=== PATIENT | male | born 1955 | race Caucasian/White ===

== ENCOUNTER 2022-01-12 15:44 | Inpatient (IN) | payer SELFPAY ==
[~2022-01-12] VITALS: Ht 165.1 cm; Wt 79.8 kg
[2022-01-12] VITALS (10 sets, daily range): BP systolic 87–153; BP diastolic 51–130
[~2022-01-12 15:44] MED LIST: ETOMIDATE 2MG/ML 10ML VIAL IV ONE; VECURONIUM BROMIDE 10 MG/VIAL IV ONE
[2022-01-12] MEDS ORDERED: ACETAMINOPHEN 650MG SUPP PR STA (15:57)
[2022-01-12] MEDS ORDERED: SODIUM CHLORIDE 0.9% 1000ML BAG (SEPSIS BOLUS) IV ONE (16:00)
[2022-01-12] MEDS ORDERED: PIPERACILLIN/TAZ 3.375G PREMIX 50 ML IV ONE (16:00)
[2022-01-12] MEDS ORDERED: NOREPINEPHRINE 8 MG in DEXT 5% WATER 242 ML IV STA (16:21)
[2022-01-12 16:35] LABS: BASOPHILS % 0.2 % (0.0-2.0); EOSINOPHILS % 0.3 % (0.0-5.0); HEMATOCRIT. 47.9 % (42.0-52.0); LYMPHOCYTES % 30.4 % (20.0-50.0); MEAN CORPUSCULAR HEMOGLOBIN 33.3 pg (28.0-32.0); MEAN CORPUSCULAR VOLUME 99.4 fL (80.0-94.0); MEAN PLATELET VOLUME 11.3 fl (7.4-10.4); MONOCYTES % 6.9 % (2.0-8.0); NEUTROPHILS % 62.2 % (40.0-76.0); PLATELET 101 x1000/uL (130-400); RED BLOOD CELL COUNT 4.82 mill/uL (4.7-6.1)
[2022-01-12 16:41] LABS: CHLORIDE 102 mEq/L (98-107)
[2022-01-12 16:42] LABS: INR 1.6; PROTHROMBIN TIME 16.1 sec (9.6-11.0)
[2022-01-12 16:51] LABS: BETA HYDROXYBUTYRATE 0.4 mMol/L (0.0-0.3); CREATINE KINASE 71 IU/L (39-308); ETHANOL BLOOD < 10 mg/dL
[2022-01-12] MEDS ORDERED: FENTANYL 2500MCG/250ML PMX 250 ML IV NR (17:00)
[2022-01-12 17:13] LABS: BG BASE EXCESS 3.1 mmol/L (-2.0-2.0); BG CARBOXYHEMOGLOBIN 0.2 % (0.5-1.5); BG DEOXYHEMOGLOBIN 0.7 % (0.0-5.0); BG FRACTION INSPIRED OXYGEN 100; BG HCO3 ACT 24.3 mmol/L (22.0-26.0); BG METHEMOGLOBIN 0.6 % (0.0-1.5); BG OXYGEN SATURATION 99.3 % (92.0-98.5); BG OXYHEMOGLOBIN 98.5 % (94.0-97.0); BG PCO2 28.4 mmHg (35.0-45.0); BG PO2 237.1 mmHg (75.0-100.0); BG SAMPLE SITE RIGHT RADIAL; BG TOTAL HEMOGLOBIN 15.1 g/dL (12.0-18.0); BG VENT MODE VENT - AC
[2022-01-12 17:15] LABS: CLARITY URINE CLOUDY (CLEAR); COLOR URINE DARK YELLOW (YELLOW); KETONES URINE TRACE (NEGATIVE); LEUKOCYTE ESTERASE URINE 1+ (NEGATIVE); NITRITE URINE POSITIVE (NEGATIVE); OCCULT BLOOD URINE TRACE (NEGATIVE); PROTEIN URINE 2+ (NEGATIVE); SPECIFIC GRAVITY URINE 1.024 (1.005-1.030)
[2022-01-12] MEDS ORDERED: IPRATROPIUM/ALBUTEROL 0.5-3(2.5)MG/3ML NEB HHN PRN (17:15)
[2022-01-12] MEDS ORDERED: MIDAZOLAM HCL 100 MG in DEXT 5% WATER 80 ML IV ONE (17:15)
[2022-01-12] MEDS ORDERED: VECURONIUM BROMIDE 10 MG/VIAL IV ONE (17:15)
[2022-01-12] MEDS ORDERED: ETOMIDATE 2MG/ML 10ML VIAL IV ONE (17:15)
[2022-01-12] MEDS ORDERED: NOREPINEPHRINE 8MG/250ML PMX 250 ML IV NR (17:15)
[2022-01-12] MEDS ORDERED: MIDAZOLAM 100MG/100ML PMX 100 ML IV NR (17:30)
[2022-01-12 17:34] LABS: *AMPHETAMINES SCREEN URINE NEGATIVE (NEGATIVE); *BARBITURATES SCREEN URINE NEGATIVE (NEGATIVE); *BENZODIAZEPINES SCREEN URINE NEGATIVE (NEGATIVE); *COCAINE SCREEN URINE NEGATIVE (NEGATIVE); CANNABINOID URINE SCREEN NEGATIVE (NEGATIVE); METHADONE URINE SCREEN NEGATIVE (NEGATIVE); OPIATES URINE SCREEN NEGATIVE (NEGATIVE); PHENCYCLIDINE URINE SCREEN NEGATIVE (NEGATIVE)
[2022-01-12] MEDS: PROPOFOL 10MG/ML 100ML 100 ML IV PRN ×2 (17:49→21:33)
[2022-01-12] MEDS ORDERED: ENOXAPARIN 40MG/0.4ML SYR SUBCUT SCH ×2 (18:00→18:15)
[2022-01-12] MEDS ORDERED: NOREPINEPHRINE 8 MG in DEXT 5% WATER 242 ML IV PRN (18:15)
[2022-01-12] MEDS ORDERED: CLONIDINE 0.1MG TABLET PO PRN (18:15)
[2022-01-12] MEDS ORDERED: MAGNESIUM/ALUMINUM HYDROXIDE/SIMETHICONE 30ML UDC PO PRN (18:15)
[2022-01-12] MEDS ORDERED: NA PHOS,M-B/NA PHOS,DI-BA ENEMA 118ML PR PRN (18:15)
[2022-01-12] MEDS ORDERED: ACETAMINOPHEN 325MG TABLET PO PRN (18:15)
[2022-01-12] MEDS ORDERED: DOCUSATE SODIUM 100MG CAPSULE PO PRN (18:15)
[2022-01-12] MEDS ORDERED: VANCOMYCIN 1500MG in DEXTROSE 5% WATER 250ML IV NR (18:30)
[2022-01-12] MEDS ORDERED: ACETAMINOPHEN 650MG SUPP PR SCH (18:30)
[2022-01-12] MEDS: DEXT 5%/0.45% NACL 1000ML 1,000 ML IV SCH (19:10)
[2022-01-12] MEDS: IPRATROPIUM/ALBUTEROL 0.5-3(2.5)MG/3ML NEB HHN SCH (20:56)
[2022-01-12] MEDS: FAMOTIDINE 20MG TABLET PO SCH (21:00)
[2022-01-12] MEDS ORDERED: PIPERACILLIN/TAZOBACTAM 3.375 G in DEXTROSE 5% WATER 50 ML IV SCH (22:00)
[2022-01-12] MEDS ORDERED: DEXTROSE 50% WATER 50ML SYRINGE IV PRN (23:00)
[2022-01-12] MEDS: PIPERACILLIN/TAZOBACTAM 3.375 G in DEXTROSE 5% WATER 50 ML IV SCH (23:02)
[2022-01-13] VITALS (87 sets, daily range): BP systolic 69–157; BP diastolic 36–110
[2022-01-13] MEDS: IPRATROPIUM/ALBUTEROL 0.5-3(2.5)MG/3ML NEB HHN SCH ×4 (00:42→18:00)
[2022-01-13 01:23] LABS: CREATINE KINASE 80 IU/L (39-308); CREATINE KINASE MB FRACTION < 1.0 ng/mL (0.5-3.6)
[2022-01-13 01:27] LABS: T4 FREE 1.41 ng/dL (0.76-1.46)
[2022-01-13] MEDS: DEXT 5%/0.45% NACL 1000ML 1,000 ML IV SCH ×2 (02:22→12:18)
[2022-01-13] MEDS: PROPOFOL 10MG/ML 100ML 100 ML IV PRN (02:51)
[2022-01-13 05:51] LABS: BASOPHILS % 0.2 % (0.0-2.0); EOSINOPHILS % 0.2 % (0.0-5.0); HEMOGLOBIN. 15.8 g/dL (14.0-18.0); LYMPHOCYTES % 26.8 % (20.0-50.0); MEAN CORPUSCULAR HEMOGLOBIN 33.8 pg (28.0-32.0); MEAN CORPUSCULAR VOLUME 100.6 fL (80.0-94.0); MEAN PLATELET VOLUME 10.7 fl (7.4-10.4); MONOCYTES % 4.4 % (2.0-8.0); NEUTROPHILS % 68.4 % (40.0-76.0); PLATELET 75 x1000/uL (130-400); RED BLOOD CELL COUNT 4.68 mill/uL (4.7-6.1); RED CELL DISTRIBUTION WIDTH 15.9 % (11.6-14.6)
[2022-01-13] MEDS: PIPERACILLIN/TAZOBACTAM 3.375 G in DEXTROSE 5% WATER 50 ML IV SCH (05:56)
[2022-01-13 06:09] LABS: CHLORIDE 104 mEq/L (98-107)
[2022-01-13 06:24] LABS: PHOSPHORUS 2.7 mg/dL (2.5-4.9)
[2022-01-13] MEDS: BLOOD SUGAR DIAGNOSTIC STRIP TEST SCH ×4 (06:30→21:18)
[2022-01-13] MEDS: INSULIN LISPRO 100 UNITS/ML SUBCUT SCH ×4 (06:37→21:29)
[2022-01-13 06:51] LABS: VITAMIN B12 SERUM 796 pg/mL (211-911)
[2022-01-13] MEDS ORDERED: VANCOMYCIN 750 MG in DEXT 5% WATER 250 ML IV SCH (07:00)
[2022-01-13 07:01] LABS: FOLIC ACID (FOLATE) SERUM > 20.00 ng/mL (>5.38)
[2022-01-13] MEDS: FAMOTIDINE 20MG TABLET PO SCH ×2 (08:27→21:26)
[2022-01-13 08:51] LABS: BG BASE EXCESS 1.4 mmol/L (-2.0-2.0); BG CARBOXYHEMOGLOBIN 0.2 % (0.5-1.5); BG DEOXYHEMOGLOBIN 1.7 % (0.0-5.0); BG FRACTION INSPIRED OXYGEN 60; BG HCO3 ACT 23.1 mmol/L (22.0-26.0); BG METHEMOGLOBIN 0.2 % (0.0-1.5); BG OXYGEN SATURATION 98.3 % (92.0-98.5); BG OXYHEMOGLOBIN 97.9 % (94.0-97.0); BG PCO2 29.3 mmHg (35.0-45.0); BG PH 7.515 (7.350-7.450); BG PO2 111.3 mmHg (75.0-100.0); BG SAMPLE SITE RIGHT BRACHIAL; BG TOTAL HEMOGLOBIN 15.6 g/dL (12.0-18.0); BG VENT MODE VENT - AC
[2022-01-13] MEDS ORDERED: VANCOMYCIN 750MG PREMIX 150 ML IV SCH (09:00)
[2022-01-13] MEDS ORDERED: PANTOPRAZOLE SODIUM 40 MG/VIAL IV SCH (09:00)
[2022-01-13] MEDS ORDERED: PHENYLEPHRINE 100 MG in DEXT 5% WATER 240 ML IV PRN ×2 (09:45→12:00)
[2022-01-13] MEDS ORDERED: POTASSIUM CHLORIDE 20MEQ/PACKET PO NR ×2 (10:00→16:00)
[2022-01-13] MEDS ORDERED: FUROSEMIDE 40MG/4ML VIAL IVP NR (10:15)
[2022-01-13] MEDS ORDERED: ENOXAPARIN 80MG/0.8ML SYR SUBCUT NR (10:30)
[2022-01-13] MEDS: PHENYLEPHRINE 100 MG in DEXT 5% WATER 240 ML IV PRN (12:17)
[2022-01-13] MEDS: MEROPENEM 1,000 MG in SODIUM CHLORIDE 0.9% 100 ML IV SCH ×2 (13:53→21:28)
[2022-01-13] MEDS: VANCOMYCIN 1GM PMX (XELLIA) 200 ML IV SCH (13:53)
[2022-01-14] VITALS (90 sets, daily range): BP systolic 51–145; BP diastolic 22–89
[2022-01-14] MEDS: DEXT 5%/0.45% NACL 1000ML 1,000 ML IV SCH ×4 (03:14→20:54)
[2022-01-14] MEDS: ONDANSETRON HCL 4MG/2ML INJ IV PRN (05:51)
[2022-01-14] MEDS: VANCOMYCIN 1GM PMX (XELLIA) 200 ML IV SCH (06:25)
[2022-01-14] MEDS: MEROPENEM 1,000 MG in SODIUM CHLORIDE 0.9% 100 ML IV SCH (06:25)
[2022-01-14] MEDS: BLOOD SUGAR DIAGNOSTIC STRIP TEST SCH ×4 (07:04→20:54)
[2022-01-14] MEDS: INSULIN LISPRO 100 UNITS/ML SUBCUT SCH ×4 (07:04→20:55)
[2022-01-14 07:27] LABS: BG BASE EXCESS -3.6 mmol/L (-2.0-2.0); BG CARBOXYHEMOGLOBIN 0.3 % (0.5-1.5); BG DEOXYHEMOGLOBIN 1.4 % (0.0-5.0); BG HCO3 ACT 18.6 mmol/L (22.0-26.0); BG METHEMOGLOBIN 0.3 % (0.0-1.5); BG OXYGEN SATURATION 98.6 % (92.0-98.5); BG PCO2 27.6 mmHg (35.0-45.0); BG PH 7.446 (7.350-7.450); BG PO2 129.8 mmHg (75.0-100.0); BG SAMPLE SITE RIGHT BRACHIAL; BG TOTAL HEMOGLOBIN 17.1 g/dL (12.0-18.0); BG VENT MODE VENT - SIMV
[2022-01-14] MEDS: IPRATROPIUM/ALBUTEROL 0.5-3(2.5)MG/3ML NEB HHN SCH ×4 (08:25→18:00)
[2022-01-14] MEDS ORDERED: FUROSEMIDE 40MG/4ML VIAL IVP NR (09:00)
[2022-01-14] MEDS ORDERED: POTASSIUM CHLORIDE 20MEQ/PACKET PO NR ×2 (09:00→14:00)
[2022-01-14 09:12] LABS: BASOPHILS % 0.3 % (0.0-2.0); EOSINOPHILS % 0.1 % (0.0-5.0); HEMATOCRIT. 50.1 % (42.0-52.0); HEMOGLOBIN. 16.5 g/dL (14.0-18.0); LYMPHOCYTES % 20.8 % (20.0-50.0); MEAN CORPUSCULAR VOLUME 100.2 fL (80.0-94.0); MEAN PLATELET VOLUME 11.4 fl (7.4-10.4); MONOCYTES % 5.7 % (2.0-8.0); NEUTROPHILS % 73.1 % (40.0-76.0); PLATELET 74 x1000/uL (130-400); RED CELL DISTRIBUTION WIDTH 16.5 % (11.6-14.6)
[2022-01-14] MEDS: FAMOTIDINE 20MG TABLET PO SCH ×2 (10:02→20:54)
[2022-01-14] MEDS: PHENYLEPHRINE 100 MG in DEXT 5% WATER 240 ML IV PRN (10:32)
[2022-01-14 11:19] LABS: BG BASE EXCESS -5.1 mmol/L (-2.0-2.0); BG CARBOXYHEMOGLOBIN 0.3 % (0.5-1.5); BG DEOXYHEMOGLOBIN 1.8 % (0.0-5.0); BG HCO3 ACT 16.6 mmol/L (22.0-26.0); BG METHEMOGLOBIN 0.3 % (0.0-1.5); BG OXYGEN SATURATION 98.2 % (92.0-98.5); BG OXYHEMOGLOBIN 97.6 % (94.0-97.0); BG PCO2 24.9 mmHg (35.0-45.0); BG PH 7.442 (7.350-7.450); BG PO2 112.3 mmHg (75.0-100.0); BG SAMPLE SITE RIGHT BRACHIAL; BG TOTAL HEMOGLOBIN 17.9 g/dL (12.0-18.0); BG VENT MODE VENT - CPAP
[2022-01-14] MEDS ORDERED: ENOXAPARIN 80MG/0.8ML SYR SUBCUT SCH (15:00)
[2022-01-14] MEDS: MEROPENEM 1000MG in NORMAL SALINE 100ML IV SCH (18:00)
[2022-01-15] VITALS (89 sets, daily range): BP systolic 54–149; BP diastolic 26–114
[2022-01-15] MEDS: ONDANSETRON HCL 4MG/2ML INJ IV PRN (03:31)
[2022-01-15 05:24] LABS: BASOPHILS % 0.3 % (0.0-2.0); EOSINOPHILS % 0.4 % (0.0-5.0); HEMATOCRIT. 46.2 % (42.0-52.0); HEMOGLOBIN. 15.2 g/dL (14.0-18.0); LYMPHOCYTES % 27.2 % (20.0-50.0); MEAN CORPUSCULAR HEMOGLOBIN 33.2 pg (28.0-32.0); MEAN CORPUSCULAR VOLUME 101.3 fL (80.0-94.0); MEAN PLATELET VOLUME 11.6 fl (7.4-10.4); NEUTROPHILS % 66.1 % (40.0-76.0); PLATELET 56 x1000/uL (130-400); RED BLOOD CELL COUNT 4.56 mill/uL (4.7-6.1); RED CELL DISTRIBUTION WIDTH 16.2 % (11.6-14.6)
[2022-01-15 05:48] LABS: PHOSPHORUS 3.3 mg/dL (2.5-4.9)
[2022-01-15] MEDS: MEROPENEM 1000MG in NORMAL SALINE 100ML IV SCH ×2 (05:57→18:49)
[2022-01-15] MEDS: DEXT 5%/0.45% NACL 1000ML 1,000 ML IV SCH ×2 (05:58→13:00)
[2022-01-15] MEDS: BLOOD SUGAR DIAGNOSTIC STRIP TEST SCH ×4 (05:58→21:41)
[2022-01-15] MEDS: INSULIN LISPRO 100 UNITS/ML SUBCUT SCH ×4 (06:00→21:41)
[2022-01-15] MEDS ORDERED: DILTIAZEM HCL 5MG/ML 5ML VIAL IV NR (07:45)
[2022-01-15] MEDS: FAMOTIDINE 20MG TABLET PO SCH ×2 (08:16→21:41)
[2022-01-15] MEDS ORDERED: LIDOCAINE HCL/PF 1% 10 MG/ML 5ML VIAL ONE (10:38)
[2022-01-15 12:31] LABS: BG CARBOXYHEMOGLOBIN 0.3 % (0.5-1.5); BG DEOXYHEMOGLOBIN 1.7 % (0.0-5.0); BG FRACTION INSPIRED OXYGEN 40; BG HCO3 ACT 17.4 mmol/L (22.0-26.0); BG METHEMOGLOBIN 0.1 % (0.0-1.5); BG OXYGEN SATURATION 98.3 % (92.0-98.5); BG OXYHEMOGLOBIN 97.9 % (94.0-97.0); BG PH 7.427 (7.350-7.450); BG PO2 116.9 mmHg (75.0-100.0); BG SAMPLE SITE RIGHT RADIAL; BG TOTAL HEMOGLOBIN 16.5 g/dL (12.0-18.0); BG VENT MODE VENT - SIMV
[2022-01-15 15:03] LABS: BG BASE EXCESS -4.7 mmol/L (-2.0-2.0); BG CARBOXYHEMOGLOBIN 0.4 % (0.5-1.5); BG DEOXYHEMOGLOBIN 2.6 % (0.0-5.0); BG FRACTION INSPIRED OXYGEN 40; BG METHEMOGLOBIN 0.3 % (0.0-1.5); BG OXYGEN SATURATION 97.4 % (92.0-98.5); BG OXYHEMOGLOBIN 96.7 % (94.0-97.0); BG PH 7.426 (7.350-7.450); BG PO2 93.9 mmHg (75.0-100.0); BG SAMPLE SITE RIGHT RADIAL; BG TOTAL HEMOGLOBIN 15.9 g/dL (12.0-18.0); BG VENT MODE VENT - CPAP
[2022-01-15] MEDS: IPRATROPIUM/ALBUTEROL 0.5-3(2.5)MG/3ML NEB HHN SCH ×2 (19:49)
[2022-01-15] MEDS: DILTIAZEM HCL 5MG/ML 5ML VIAL IV PRN (20:50)
[2022-01-15] MEDS ORDERED: VANCOMYCIN 750 MG in DEXT 5% WATER 250 ML IV NR (21:00)
[2022-01-16] VITALS (71 sets, daily range): BP systolic 98–143; BP diastolic 30–108
[2022-01-16] MEDS: DEXT 5%/0.45% NACL 1000ML 1,000 ML IV SCH (00:07)
[2022-01-16] MEDS: IPRATROPIUM/ALBUTEROL 0.5-3(2.5)MG/3ML NEB HHN SCH ×4 (01:51→20:30)
[2022-01-16 05:01] LABS: BASOPHILS % 0.3 % (0.0-2.0); EOSINOPHILS % 0.5 % (0.0-5.0); HEMATOCRIT. 49.9 % (42.0-52.0); HEMOGLOBIN. 16.1 g/dL (14.0-18.0); LYMPHOCYTES % 22.5 % (20.0-50.0); MEAN CORPUSCULAR HEMOGLOBIN 33.4 pg (28.0-32.0); MEAN CORPUSCULAR VOLUME 103.6 fL (80.0-94.0); MEAN PLATELET VOLUME 12.2 fl (7.4-10.4); MONOCYTES % 8.9 % (2.0-8.0); NEUTROPHILS % 67.8 % (40.0-76.0); PLATELET 61 x1000/uL (130-400); RED BLOOD CELL COUNT 4.82 mill/uL (4.7-6.1); RED CELL DISTRIBUTION WIDTH 17.3 % (11.6-14.6)
[2022-01-16 05:23] LABS: PHOSPHORUS 2.9 mg/dL (2.5-4.9)
[2022-01-16] MEDS: MEROPENEM 1000MG in NORMAL SALINE 100ML IV SCH ×2 (06:03→17:15)
[2022-01-16] MEDS: DILTIAZEM HCL 5MG/ML 5ML VIAL IV PRN (06:03)
[2022-01-16] MEDS: BLOOD SUGAR DIAGNOSTIC STRIP TEST SCH ×4 (06:57→23:49)
[2022-01-16] MEDS: INSULIN LISPRO 100 UNITS/ML SUBCUT SCH ×3 (07:00→17:16)
[2022-01-16] MEDS: FAMOTIDINE 20MG TABLET PO SCH ×2 (08:33→09:00)
[2022-01-16 11:01] LABS: BG BASE EXCESS -4.4 mmol/L (-2.0-2.0); BG CARBOXYHEMOGLOBIN 0.9 % (0.5-1.5); BG DEOXYHEMOGLOBIN 0.9 % (0.0-5.0); BG FRACTION INSPIRED OXYGEN 40; BG HCO3 ACT 17.4 mmol/L (22.0-26.0); BG METHEMOGLOBIN 0.3 % (0.0-1.5); BG OXYGEN SATURATION 99.1 % (92.0-98.5); BG OXYHEMOGLOBIN 97.9 % (94.0-97.0); BG PCO2 25.2 mmHg (35.0-45.0); BG PH 7.456 (7.350-7.450); BG PO2 126.9 mmHg (75.0-100.0); BG SAMPLE SITE RIGHT RADIAL; BG TOTAL HEMOGLOBIN 16.1 g/dL (12.0-18.0); BG VENT MODE VENT - SIMV
[2022-01-17] VITALS (44 sets, daily range): BP systolic 106–243; BP diastolic 47–117
[2022-01-17] MEDS: DILTIAZEM HCL 5MG/ML 5ML VIAL IV PRN ×2 (00:04→13:21)
[2022-01-17] MEDS: INSULIN LISPRO 100 UNITS/ML SUBCUT SCH ×4 (00:05→18:00)
[2022-01-17] MEDS: IPRATROPIUM/ALBUTEROL 0.5-3(2.5)MG/3ML NEB HHN SCH ×4 (02:06→20:39)
[2022-01-17 05:30] LABS: HEMATOCRIT. 28.7 % (42.0-52.0); HEMOGLOBIN. 9.6 g/dL (14.0-18.0); MEAN CORPUSCULAR HEMOGLOBIN 34.2 pg (28.0-32.0); MEAN CORPUSCULAR VOLUME 102.6 fL (80.0-94.0); MEAN PLATELET VOLUME 12.9 fl (7.4-10.4); RED BLOOD CELL COUNT 2.79 mill/uL (4.7-6.1); RED CELL DISTRIBUTION WIDTH 16.5 % (11.6-14.6)
[2022-01-17 05:54] LABS: PHOSPHORUS 2.8 mg/dL (2.5-4.9)
[2022-01-17] MEDS ORDERED: VANCOMYCIN 750 MG in DEXT 5% WATER 250 ML IV PRN (06:00)
[2022-01-17] MEDS: BLOOD SUGAR DIAGNOSTIC STRIP TEST SCH ×3 (06:02→18:42)
[2022-01-17] MEDS: MEROPENEM 1000MG in NORMAL SALINE 100ML IV SCH ×2 (06:15→18:47)
[2022-01-17 06:36] LABS: PLATELET 38 x1000/uL (130-400)
[2022-01-17 08:14] LABS: PLATELET ESTIMATE MARKEDLY DECREASED
[2022-01-17] MEDS: FAMOTIDINE 20MG TABLET PO SCH (08:14)
[2022-01-17 08:33] LABS: BG BASE EXCESS -3.8 mmol/L (-2.0-2.0); BG DEOXYHEMOGLOBIN 3.5 % (0.0-5.0); BG FRACTION INSPIRED OXYGEN 30; BG HCO3 ACT 18.2 mmol/L (22.0-26.0); BG METHEMOGLOBIN 0.3 % (0.0-1.5); BG OXYGEN SATURATION 96.5 % (92.0-98.5); BG OXYHEMOGLOBIN 95.2 % (94.0-97.0); BG PCO2 26.3 mmHg (35.0-45.0); BG PH 7.458 (7.350-7.450); BG PO2 81.4 mmHg (75.0-100.0); BG SAMPLE SITE RIGHT RADIAL; BG TOTAL HEMOGLOBIN 15.4 g/dL (12.0-18.0); BG VENT MODE VENT - SIMV
[2022-01-17] MEDS ORDERED: FUROSEMIDE 40MG/4ML VIAL IVP SCH (09:00)
[2022-01-17] MEDS: DOBUTAMINE 500MG PREMIX 250 ML IV SCH ×2 (11:12→21:45)
[2022-01-17] MEDS ORDERED: NICARDIPINE 100 MG in SODIUM CHLORIDE 0.9% 60 ML IV PRN (14:00)
[2022-01-17] MEDS: CARVEDILOL 6.25 MG TABLET PO SCH ×2 (18:00→23:10)
[2022-01-17 23:18] LABS: BASOPHILS % 0.4 % (0.0-2.0); EOSINOPHILS % 0.3 % (0.0-5.0); HEMATOCRIT. 39.6 % (42.0-52.0); HEMOGLOBIN. 13.2 g/dL (14.0-18.0); LYMPHOCYTES % 15.6 % (20.0-50.0); MEAN CORPUSCULAR HEMOGLOBIN 33.1 pg (28.0-32.0); MEAN CORPUSCULAR VOLUME 99.4 fL (80.0-94.0); MEAN PLATELET VOLUME 11.5 fl (7.4-10.4); MONOCYTES % 11.2 % (2.0-8.0); NEUTROPHILS % 72.5 % (40.0-76.0); RED BLOOD CELL COUNT 3.99 mill/uL (4.7-6.1); RED CELL DISTRIBUTION WIDTH 15.9 % (11.6-14.6)
[2022-01-17 23:32] LABS: PLATELET 35 x1000/uL (130-400)
[2022-01-18] VITALS (55 sets, daily range): BP systolic 102–172; BP diastolic 33–119
[2022-01-18] MEDS: BLOOD SUGAR DIAGNOSTIC STRIP TEST SCH ×4 (00:44→18:37)
[2022-01-18] MEDS: INSULIN LISPRO 100 UNITS/ML SUBCUT SCH ×4 (00:53→18:00)
[2022-01-18] MEDS: IPRATROPIUM/ALBUTEROL 0.5-3(2.5)MG/3ML NEB HHN SCH ×4 (01:34→22:01)
[2022-01-18 05:47] LABS: BASOPHILS % 0.2 % (0.0-2.0); EOSINOPHILS % 0.4 % (0.0-5.0); HEMATOCRIT. 39.3 % (42.0-52.0); HEMOGLOBIN. 13.1 g/dL (14.0-18.0); LYMPHOCYTES % 16.8 % (20.0-50.0); MEAN CORPUSCULAR HEMOGLOBIN 32.9 pg (28.0-32.0); MEAN CORPUSCULAR VOLUME 98.7 fL (80.0-94.0); MEAN PLATELET VOLUME 10.8 fl (7.4-10.4); MONOCYTES % 10.5 % (2.0-8.0); NEUTROPHILS % 72.1 % (40.0-76.0); RED BLOOD CELL COUNT 3.98 mill/uL (4.7-6.1); RED CELL DISTRIBUTION WIDTH 16.4 % (11.6-14.6)
[2022-01-18 05:58] LABS: CHLORIDE 105 mEq/L (98-107)
[2022-01-18 06:10] LABS: PHOSPHORUS 2.2 mg/dL (2.5-4.9)
[2022-01-18] MEDS: MEROPENEM 1000MG in NORMAL SALINE 100ML IV SCH ×2 (06:36→18:28)
[2022-01-18 06:48] LABS: PLATELET 32 x1000/uL (130-400)
[2022-01-18] MEDS: CARVEDILOL 6.25 MG TABLET PO SCH (08:19)
[2022-01-18] MEDS: FAMOTIDINE 20MG TABLET PO SCH (08:19)
[2022-01-18] MEDS: DOBUTAMINE 500MG PREMIX 250 ML IV SCH ×3 (09:00→14:14)
[2022-01-18] MEDS ORDERED: FUROSEMIDE 40MG/4ML VIAL IVP SCH (10:00)
[2022-01-18] MEDS: VANCOMYCIN 750 MG in DEXT 5% WATER 250 ML IV SCH (14:39)
[2022-01-18] MEDS ORDERED: POTASSIUM PHOS,M-BASIC-D-BASIC 15 MMOL in DEXT 5% WATER 245 ML IV SCH (15:00)
[2022-01-18] MEDS ORDERED: MAGNESIUM 2 G PREMIX 50 ML IV SCH (15:00)
[2022-01-18 16:47] LABS: BG CARBOXYHEMOGLOBIN 0.4 % (0.5-1.5); BG DEOXYHEMOGLOBIN 2.3 % (0.0-5.0); BG HCO3 ACT 23.2 mmol/L (22.0-26.0); BG METHEMOGLOBIN 0.1 % (0.0-1.5); BG OXYGEN SATURATION 97.7 % (92.0-98.5); BG OXYHEMOGLOBIN 97.2 % (94.0-97.0); BG PCO2 30.3 mmHg (35.0-45.0); BG PH 7.502 (7.350-7.450); BG PO2 98.6 mmHg (75.0-100.0); BG SAMPLE SITE RIGHT RADIAL; BG TOTAL HEMOGLOBIN 13.7 g/dL (12.0-18.0); BG VENT MODE VENT - CPAP
[2022-01-18] MEDS: CARVEDILOL 12.5MG TABLET PO SCH (20:48)
[2022-01-19] VITALS (54 sets, daily range): BP systolic 106–151; BP diastolic 33–107
[2022-01-19] MEDS: BLOOD SUGAR DIAGNOSTIC STRIP TEST SCH ×5 (00:25→23:26)
[2022-01-19] MEDS: IPRATROPIUM/ALBUTEROL 0.5-3(2.5)MG/3ML NEB HHN SCH ×4 (01:52→21:00)
[2022-01-19] MEDS: DOBUTAMINE 500MG PREMIX 250 ML IV SCH (01:53)
[2022-01-19] MEDS: DILTIAZEM HCL 5MG/ML 5ML VIAL IV PRN ×2 (03:10→23:52)
[2022-01-19 05:53] LABS: BASOPHILS % 0.1 % (0.0-2.0); EOSINOPHILS % 1.1 % (0.0-5.0); HEMATOCRIT. 39.2 % (42.0-52.0); LYMPHOCYTES % 20.4 % (20.0-50.0); MEAN CORPUSCULAR HEMOGLOBIN 33.1 pg (28.0-32.0); MEAN CORPUSCULAR VOLUME 99.7 fL (80.0-94.0); MEAN PLATELET VOLUME 12.4 fl (7.4-10.4); MONOCYTES % 11.2 % (2.0-8.0); NEUTROPHILS % 67.2 % (40.0-76.0); RED BLOOD CELL COUNT 3.93 mill/uL (4.7-6.1); RED CELL DISTRIBUTION WIDTH 16.1 % (11.6-14.6)
[2022-01-19] MEDS: INSULIN LISPRO 100 UNITS/ML SUBCUT SCH ×5 (06:00→23:26)
[2022-01-19 06:07] LABS: CHLORIDE 103 mEq/L (98-107)
[2022-01-19 06:26] LABS: PLATELET 33 x1000/uL (130-400)
[2022-01-19] MEDS ORDERED: FUROSEMIDE 40MG/4ML VIAL IVP NR (09:45)
[2022-01-19] MEDS: FAMOTIDINE 20MG TABLET PO SCH (09:47)
[2022-01-19] MEDS: CARVEDILOL 12.5MG TABLET PO SCH ×2 (09:47→20:59)
[2022-01-19] MEDS: VANCOMYCIN 750 MG in DEXT 5% WATER 250 ML IV SCH (14:57)
[2022-01-19] MEDS: ONDANSETRON HCL 4MG/2ML INJ IV PRN (21:00)
[2022-01-20] VITALS (13 sets, daily range): BP systolic 107–130; BP diastolic 69–90
[2022-01-20] MEDS: IPRATROPIUM/ALBUTEROL 0.5-3(2.5)MG/3ML NEB HHN SCH ×4 (02:52→20:03)
[2022-01-20] MEDS: BLOOD SUGAR DIAGNOSTIC STRIP TEST SCH ×4 (05:04→23:03)
[2022-01-20] MEDS: INSULIN LISPRO 100 UNITS/ML SUBCUT SCH ×4 (05:12→23:04)
[2022-01-20 06:55] LABS: BASOPHILS % 0.2 % (0.0-2.0); EOSINOPHILS % 0.7 % (0.0-5.0); HEMATOCRIT. 48.9 % (42.0-52.0); HEMOGLOBIN. 15.6 g/dL (14.0-18.0); LYMPHOCYTES % 23.4 % (20.0-50.0); MEAN CORPUSCULAR HEMOGLOBIN 33.4 pg (28.0-32.0); MEAN CORPUSCULAR VOLUME 104.7 fL (80.0-94.0); MONOCYTES % 11.4 % (2.0-8.0); NEUTROPHILS % 64.3 % (40.0-76.0); RED BLOOD CELL COUNT 4.67 mill/uL (4.7-6.1); RED CELL DISTRIBUTION WIDTH 18.1 % (11.6-14.6)
[2022-01-20 07:08] LABS: PLATELET 40 x1000/uL (130-400)
[2022-01-20 07:20] LABS: CHLORIDE 101 mEq/L (98-107)
[2022-01-20 07:34] LABS: PHOSPHORUS 3.4 mg/dL (2.5-4.9)
[2022-01-20] MEDS: FUROSEMIDE 40MG/4ML VIAL IVP SCH (09:15)
[2022-01-20] MEDS: FAMOTIDINE 20MG TABLET PO SCH (09:15)
[2022-01-20] MEDS: CARVEDILOL 12.5MG TABLET PO SCH ×2 (09:15→20:38)
[2022-01-20] MEDS: MICONAZOLE NITRATE 2% OINT 71GM TOP SCH ×2 (09:16→20:39)
[2022-01-20] MEDS ORDERED: CARVEDILOL 12.5MG TABLET PO NR (11:15)
[2022-01-20] MEDS: VANCOMYCIN 750 MG in DEXT 5% WATER 250 ML IV SCH (14:15)
[2022-01-21] VITALS (11 sets, daily range): BP systolic 88–148; BP diastolic 61–78
[2022-01-21] MEDS: IPRATROPIUM/ALBUTEROL 0.5-3(2.5)MG/3ML NEB HHN SCH ×4 (02:00→20:09)
[2022-01-21] MEDS: INSULIN LISPRO 100 UNITS/ML SUBCUT SCH ×3 (05:15→17:37)
[2022-01-21] MEDS: BLOOD SUGAR DIAGNOSTIC STRIP TEST SCH ×3 (05:15→17:03)
[2022-01-21 07:05] LABS: CHLORIDE 103 mEq/L (98-107)
[2022-01-21 07:23] LABS: PHOSPHORUS 3.6 mg/dL (2.5-4.9)
[2022-01-21] MEDS: FUROSEMIDE 40MG/4ML VIAL IVP SCH (09:11)
[2022-01-21] MEDS: CARVEDILOL 12.5MG TABLET PO SCH ×2 (09:13→21:00)
[2022-01-21] MEDS: FAMOTIDINE 20MG TABLET PO SCH (09:13)
[2022-01-21] MEDS: MICONAZOLE NITRATE 2% OINT 71GM TOP SCH ×2 (09:18→21:00)
[2022-01-21] MEDS: GUAIFENESIN 200MG/10ML SUGAR FREE UDC PO PRN (09:44)
[2022-01-21 10:01] LABS: BASOPHILS % 0.3 % (0.0-2.0); EOSINOPHILS % 1.1 % (0.0-5.0); HEMOGLOBIN. 14.6 g/dL (14.0-18.0); LYMPHOCYTES % 20.4 % (20.0-50.0); MEAN CORPUSCULAR HEMOGLOBIN 33.5 pg (28.0-32.0); MEAN CORPUSCULAR VOLUME 101.1 fL (80.0-94.0); MEAN PLATELET VOLUME 12.4 fl (7.4-10.4); MONOCYTES % 10.1 % (2.0-8.0); NEUTROPHILS % 68.1 % (40.0-76.0); RED BLOOD CELL COUNT 4.35 mill/uL (4.7-6.1)
[2022-01-21 10:23] LABS: PLATELET 46 x1000/uL (130-400)
[2022-01-21 13:18] LABS: PLATELET ESTIMATE MARKEDLY DECREASED
[2022-01-21] MEDS: VANCOMYCIN 750 MG in DEXT 5% WATER 250 ML IV SCH (17:08)
[2022-01-22] VITALS (12 sets, daily range): BP systolic 83–118; BP diastolic 51–97
[2022-01-22] MEDS: INSULIN LISPRO 100 UNITS/ML SUBCUT SCH ×5 (00:26→23:29)
[2022-01-22] MEDS: BLOOD SUGAR DIAGNOSTIC STRIP TEST SCH ×5 (00:26→23:19)
[2022-01-22] MEDS: IPRATROPIUM/ALBUTEROL 0.5-3(2.5)MG/3ML NEB HHN SCH ×4 (02:10→20:49)
[2022-01-22] MEDS: FAMOTIDINE 20MG TABLET PO SCH (08:57)
[2022-01-22] MEDS: CARVEDILOL 12.5MG TABLET PO SCH (08:57)
[2022-01-22] MEDS: FUROSEMIDE 40MG/4ML VIAL IVP SCH (08:57)
[2022-01-22] MEDS: MICONAZOLE NITRATE 2% OINT 71GM TOP SCH ×2 (08:57→21:00)
[2022-01-22] MEDS: VANCOMYCIN 750 MG in DEXT 5% WATER 250 ML IV SCH (14:45)
[2022-01-22] MEDS: CARVEDILOL 6.25 MG TABLET PO SCH (21:00)
[2022-01-22] MEDS: GUAIFENESIN 200MG/10ML SUGAR FREE UDC PO PRN (23:29)
[2022-01-23] VITALS (12 sets, daily range): BP systolic 89–118; BP diastolic 47–99
[2022-01-23] MEDS: IPRATROPIUM/ALBUTEROL 0.5-3(2.5)MG/3ML NEB HHN SCH ×4 (02:10→21:10)
[2022-01-23] MEDS: INSULIN LISPRO 100 UNITS/ML SUBCUT SCH ×3 (05:22→17:29)
[2022-01-23] MEDS: BLOOD SUGAR DIAGNOSTIC STRIP TEST SCH ×3 (05:22→17:29)
[2022-01-23] MEDS: CARVEDILOL 6.25 MG TABLET PO SCH ×2 (08:16→20:26)
[2022-01-23] MEDS: FAMOTIDINE 20MG TABLET PO SCH (08:16)
[2022-01-23] MEDS: FUROSEMIDE 40MG/4ML VIAL IVP SCH (08:16)
[2022-01-23] MEDS: MICONAZOLE NITRATE 2% OINT 71GM TOP SCH ×2 (08:17→20:23)
[2022-01-24] VITALS (11 sets, daily range): BP systolic 96–142; BP diastolic 47–105
[2022-01-24] MEDS: INSULIN LISPRO 100 UNITS/ML SUBCUT SCH ×4 (00:39→18:31)
[2022-01-24] MEDS: IPRATROPIUM/ALBUTEROL 0.5-3(2.5)MG/3ML NEB HHN SCH ×4 (03:02→19:56)
[2022-01-24] MEDS: BLOOD SUGAR DIAGNOSTIC STRIP TEST SCH ×4 (05:14→18:30)
[2022-01-24] MEDS: GUAIFENESIN 200MG/10ML SUGAR FREE UDC PO PRN (05:16)
[2022-01-24] MEDS: MICONAZOLE NITRATE 2% OINT 71GM TOP SCH ×2 (09:00→22:06)
[2022-01-24] MEDS: CARVEDILOL 6.25 MG TABLET PO SCH (09:00)
[2022-01-24] MEDS: FAMOTIDINE 20MG TABLET PO SCH (10:02)
[2022-01-24] MEDS: FUROSEMIDE 40MG/4ML VIAL IVP SCH (10:02)
[2022-01-24] MEDS: CARVEDILOL 3.125 MG TABLET PO SCH (22:04)
[2022-01-25] VITALS (59 sets, daily range): BP systolic 73–148; BP diastolic 42–107
[2022-01-25] MEDS: BLOOD SUGAR DIAGNOSTIC STRIP TEST SCH ×5 (00:24→23:30)
[2022-01-25] MEDS: INSULIN LISPRO 100 UNITS/ML SUBCUT SCH ×5 (00:34→23:29)
[2022-01-25] MEDS: IPRATROPIUM/ALBUTEROL 0.5-3(2.5)MG/3ML NEB HHN SCH ×4 (02:10→21:06)
[2022-01-25 05:24] LABS: BASOPHILS % 0.5 % (0.0-2.0); EOSINOPHILS % 0.3 % (0.0-5.0); HEMATOCRIT. 47.6 % (42.0-52.0); LYMPHOCYTES % 29.2 % (20.0-50.0); MEAN CORPUSCULAR HEMOGLOBIN 33.5 pg (28.0-32.0); MEAN PLATELET VOLUME 11.2 fl (7.4-10.4); MONOCYTES % 8.1 % (2.0-8.0); NEUTROPHILS % 61.9 % (40.0-76.0); PLATELET 54 x1000/uL (130-400); RED BLOOD CELL COUNT 4.76 mill/uL (4.7-6.1); RED CELL DISTRIBUTION WIDTH 17.4 % (11.6-14.6)
[2022-01-25] MEDS: NOREPINEPHRINE 32 MG in DEXT 5% WATER 218 ML IV PRN (06:39)
[2022-01-25 06:58] LABS: BG BASE EXCESS 0.4 mmol/L (-2.0-2.0); BG CARBOXYHEMOGLOBIN 0.5 % (0.5-1.5); BG DEOXYHEMOGLOBIN 0.7 % (0.0-5.0); BG HCO3 ACT 27.3 mmol/L (22.0-26.0); BG METHEMOGLOBIN 0.3 % (0.0-1.5); BG OXYGEN SATURATION 99.3 % (92.0-98.5); BG OXYHEMOGLOBIN 98.5 % (94.0-97.0); BG PCO2 52.6 mmHg (35.0-45.0); BG PH 7.333 (7.350-7.450); BG PO2 327.5 mmHg (75.0-100.0); BG SAMPLE SITE RIGHT RADIAL; BG TOTAL HEMOGLOBIN 15.1 g/dL (12.0-18.0); BG VENT MODE VENT - AC
[2022-01-25] MEDS ORDERED: LIDOCAINE HCL/PF 1% 10 MG/ML 5ML VIAL ONE (08:16)
[2022-01-25] MEDS: CARVEDILOL 3.125 MG TABLET PO SCH ×3 (09:00→21:00)
[2022-01-25] MEDS: MICONAZOLE NITRATE 2% OINT 71GM TOP SCH ×2 (09:00→21:22)
[2022-01-25] MEDS ORDERED: SODIUM BICARBONATE 8.4% 1 MEQ/ML 50ML SYR IV ONE (09:21)
[2022-01-25] MEDS ORDERED: EPINEPHRINE 0.1MG/ML (1:10,000) 10ML SYR ONE (09:21)
[2022-01-25] MEDS: DEXT 5%/0.9% NACL 1,000 ML IV SCH (10:30)
[2022-01-25] MEDS: FAMOTIDINE 20MG TABLET PO SCH (12:24)
[2022-01-25] MEDS: FUROSEMIDE 40MG/4ML VIAL IVP SCH (12:25)
[2022-01-26] VITALS (97 sets, daily range): BP systolic 58–155; BP diastolic 24–101
[2022-01-26] MEDS: IPRATROPIUM/ALBUTEROL 0.5-3(2.5)MG/3ML NEB HHN SCH ×4 (02:15→20:19)
[2022-01-26] MEDS: BLOOD SUGAR DIAGNOSTIC STRIP TEST SCH ×4 (06:10→23:49)
[2022-01-26] MEDS: DEXT 5%/0.9% NACL 1,000 ML IV SCH (06:10)
[2022-01-26] MEDS: INSULIN LISPRO 100 UNITS/ML SUBCUT SCH ×4 (06:43→23:49)
[2022-01-26 08:25] LABS: BG BASE EXCESS -0.6 mmol/L (-2.0-2.0); BG CARBOXYHEMOGLOBIN 0.1 % (0.5-1.5); BG DEOXYHEMOGLOBIN 0.7 % (0.0-5.0); BG FRACTION INSPIRED OXYGEN 45; BG HCO3 ACT 19.8 mmol/L (22.0-26.0); BG METHEMOGLOBIN 0.4 % (0.0-1.5); BG OXYGEN SATURATION 99.3 % (92.0-98.5); BG OXYHEMOGLOBIN 98.8 % (94.0-97.0); BG PCO2 24.1 mmHg (35.0-45.0); BG PH 7.533 (7.350-7.450); BG PO2 171.4 mmHg (75.0-100.0); BG SAMPLE SITE RIGHT RADIAL; BG TOTAL HEMOGLOBIN 16.6 g/dL (12.0-18.0); BG TOTAL RESPIRATORY RATE 18 b/min; BG VENT MODE VENT - AC
[2022-01-26] MEDS: CARVEDILOL 3.125 MG TABLET PO SCH ×2 (09:00→21:00)
[2022-01-26] MEDS: FAMOTIDINE 20MG TABLET PO SCH (09:03)
[2022-01-26] MEDS: MICONAZOLE NITRATE 2% OINT 71GM TOP SCH ×2 (09:03→21:34)
[2022-01-26] MEDS: FUROSEMIDE 40MG/4ML VIAL IVP SCH (09:03)
[2022-01-26 09:29] LABS: BASOPHILS % 0.4 % (0.0-2.0); EOSINOPHILS % 0.1 % (0.0-5.0); HEMATOCRIT. 47.5 % (42.0-52.0); HEMOGLOBIN. 15.7 g/dL (14.0-18.0); LYMPHOCYTES % 20.8 % (20.0-50.0); MEAN CORPUSCULAR HEMOGLOBIN 32.7 pg (28.0-32.0); MEAN CORPUSCULAR VOLUME 99.4 fL (80.0-94.0); MEAN PLATELET VOLUME 11.4 fl (7.4-10.4); NEUTROPHILS % 71.7 % (40.0-76.0); PLATELET 78 x1000/uL (130-400); RED BLOOD CELL COUNT 4.78 mill/uL (4.7-6.1); RED CELL DISTRIBUTION WIDTH 16.6 % (11.6-14.6)
[2022-01-26 09:36] LABS: CHLORIDE 106 mEq/L (98-107)
[2022-01-26] MEDS ORDERED: DOBUTAMINE 500MG PREMIX 250 ML IV ONE (11:00)
[2022-01-26] MEDS: PROPOFOL 10MG/ML 100ML 100 ML IV PRN (11:13)
[2022-01-26] MEDS: NOREPINEPHRINE 32 MG in DEXT 5% WATER 218 ML IV PRN (21:34)
[2022-01-26] MEDS: PHENYLEPHRINE 100 MG in DEXT 5% WATER 240 ML IV PRN (22:21)
[2022-01-27] VITALS (95 sets, daily range): BP systolic 74–131; BP diastolic 51–90
[2022-01-27] MEDS: IPRATROPIUM/ALBUTEROL 0.5-3(2.5)MG/3ML NEB HHN SCH ×5 (01:30→20:17)
[2022-01-27] MEDS: DEXT 5%/0.9% NACL 1,000 ML IV SCH ×2 (01:57→21:14)
[2022-01-27] MEDS: PROPOFOL 10MG/ML 100ML 100 ML IV PRN (01:57)
[2022-01-27 05:28] LABS: BASOPHILS % 0.1 % (0.0-2.0); EOSINOPHILS % 0.2 % (0.0-5.0); HEMATOCRIT. 45.2 % (42.0-52.0); HEMOGLOBIN. 14.9 g/dL (14.0-18.0); LYMPHOCYTES % 21.6 % (20.0-50.0); MEAN CORPUSCULAR HEMOGLOBIN 33.1 pg (28.0-32.0); MEAN CORPUSCULAR VOLUME 100.7 fL (80.0-94.0); MEAN PLATELET VOLUME 10.9 fl (7.4-10.4); MONOCYTES % 7.5 % (2.0-8.0); NEUTROPHILS % 70.6 % (40.0-76.0); PLATELET 78 x1000/uL (130-400); RED BLOOD CELL COUNT 4.49 mill/uL (4.7-6.1); RED CELL DISTRIBUTION WIDTH 17.1 % (11.6-14.6)
[2022-01-27] MEDS: BLOOD SUGAR DIAGNOSTIC STRIP TEST SCH ×3 (06:33→17:37)
[2022-01-27] MEDS: INSULIN LISPRO 100 UNITS/ML SUBCUT SCH ×3 (06:34→18:02)
[2022-01-27] MEDS: FAMOTIDINE 20MG TABLET PO SCH (08:28)
[2022-01-27] MEDS: FUROSEMIDE 40MG/4ML VIAL IVP SCH (08:28)
[2022-01-27] MEDS: MICONAZOLE NITRATE 2% OINT 71GM TOP SCH ×2 (08:29→21:16)
[2022-01-27] MEDS: CARVEDILOL 3.125 MG TABLET PO SCH ×2 (08:29→21:00)
[2022-01-27 08:57] LABS: BG BASE EXCESS -0.7 mmol/L (-2.0-2.0); BG CARBOXYHEMOGLOBIN 0.9 % (0.5-1.5); BG DEOXYHEMOGLOBIN 1.9 % (0.0-5.0); BG FRACTION INSPIRED OXYGEN 35; BG HCO3 ACT 21.8 mmol/L (22.0-26.0); BG METHEMOGLOBIN 0.5 % (0.0-1.5); BG OXYGEN SATURATION 98.1 % (92.0-98.5); BG OXYHEMOGLOBIN 96.7 % (94.0-97.0); BG PCO2 30.6 mmHg (35.0-45.0); BG PO2 105.2 mmHg (75.0-100.0); BG SAMPLE SITE RIGHT RADIAL; BG TOTAL HEMOGLOBIN 16.4 g/dL (12.0-18.0); BG VENT MODE VENT - AC
[2022-01-27] MEDS ORDERED: FENTANYL 2500MCG/250ML PMX 250 ML IV PRN (12:00)
[2022-01-27] MEDS ORDERED: PROPOFOL 10MG/ML 100ML 100 ML IV PRN (12:00)
[2022-01-27] MEDS: ONDANSETRON HCL 4MG/2ML INJ IV PRN (18:13)
[2022-01-28] VITALS (92 sets, daily range): BP systolic 55–158; BP diastolic 25–98
[2022-01-28] MEDS: BLOOD SUGAR DIAGNOSTIC STRIP TEST SCH ×4 (00:18→18:59)
[2022-01-28] MEDS: INSULIN LISPRO 100 UNITS/ML SUBCUT SCH ×4 (00:23→18:00)
[2022-01-28] MEDS: PHENYLEPHRINE 100 MG in DEXT 5% WATER 240 ML IV PRN (00:56)
[2022-01-28] MEDS: IPRATROPIUM/ALBUTEROL 0.5-3(2.5)MG/3ML NEB HHN SCH ×4 (02:11→19:59)
[2022-01-28 06:29] LABS: BASOPHILS % 0.3 % (0.0-2.0); EOSINOPHILS % 0.4 % (0.0-5.0); HEMATOCRIT. 41.2 % (42.0-52.0); HEMOGLOBIN. 13.8 g/dL (14.0-18.0); LYMPHOCYTES % 19.1 % (20.0-50.0); MEAN CORPUSCULAR HEMOGLOBIN 33.3 pg (28.0-32.0); MEAN CORPUSCULAR VOLUME 99.1 fL (80.0-94.0); MEAN PLATELET VOLUME 10.2 fl (7.4-10.4); NEUTROPHILS % 74.2 % (40.0-76.0); PLATELET 56 x1000/uL (130-400); RED BLOOD CELL COUNT 4.15 mill/uL (4.7-6.1); RED CELL DISTRIBUTION WIDTH 16.1 % (11.6-14.6)
[2022-01-28] MEDS ORDERED: POTASSIUM CHLORIDE INJ 40 MEQ in DEXT 5% WATER 250 ML IV ONE (07:15)
[2022-01-28] MEDS ORDERED: POTASSIUM CHLORIDE 20MEQ TABLET SR PO ONE (07:15)
[2022-01-28] MEDS ORDERED: POTASSIUM CHLORIDE 20MEQ/PACKET PO NR (07:45)
[2022-01-28] MEDS: KCL 20MEQ/100ML X 2 FOR TOTAL KCL 40MEQ/200ML IV SCH ×4 (08:00→14:00)
[2022-01-28] MEDS: FAMOTIDINE 20MG TABLET PO SCH (08:15)
[2022-01-28] MEDS: MICONAZOLE NITRATE 2% OINT 71GM TOP SCH ×2 (08:16→21:51)
[2022-01-28 08:26] LABS: BG BASE EXCESS 3.4 mmol/L (-2.0-2.0); BG CARBOXYHEMOGLOBIN 0.7 % (0.5-1.5); BG DEOXYHEMOGLOBIN 2.5 % (0.0-5.0); BG FRACTION INSPIRED OXYGEN 35; BG HCO3 ACT 25.5 mmol/L (22.0-26.0); BG OXYGEN SATURATION 97.5 % (92.0-98.5); BG OXYHEMOGLOBIN 96.8 % (94.0-97.0); BG PCO2 31.7 mmHg (35.0-45.0); BG PH 7.524 (7.350-7.450); BG PO2 95.5 mmHg (75.0-100.0); BG SAMPLE SITE RIGHT RADIAL; BG TOTAL HEMOGLOBIN 14.9 g/dL (12.0-18.0); BG VENT MODE VENT - AC
[2022-01-28] MEDS: CARVEDILOL 3.125 MG TABLET PO SCH ×2 (09:00→21:54)
[2022-01-28] MEDS: ONDANSETRON HCL 4MG/2ML INJ IV PRN (13:50)
[2022-01-28] MEDS ORDERED: PROPOFOL 10MG/ML 100ML 100 ML IV PRN (14:30)
[2022-01-28 15:20] LABS: BG BASE EXCESS 0.1 mmol/L (-2.0-2.0); BG CARBOXYHEMOGLOBIN 0.6 % (0.5-1.5); BG HCO3 ACT 23.7 mmol/L (22.0-26.0); BG METHEMOGLOBIN 0.3 % (0.0-1.5); BG OXYHEMOGLOBIN 94.1 % (94.0-97.0); BG PCO2 35.5 mmHg (35.0-45.0); BG PH 7.442 (7.350-7.450); BG PO2 83.3 mmHg (75.0-100.0); BG SAMPLE SITE RIGHT RADIAL; BG TOTAL HEMOGLOBIN 15.6 g/dL (12.0-18.0); BG TOTAL RESPIRATORY RATE 13 b/min; BG VENT MODE VENT - CPAP
[2022-01-28] MEDS: LACTULOSE 20G/30ML UDC PO SCH ×2 (15:43→21:53)
[2022-01-28] MEDS: METOCLOPRAMIDE HCL 10MG/2ML VIAL IV SCH (18:59)
[2022-01-28] MEDS: DEXT 5%/0.9% NACL 1,000 ML IV SCH (18:59)
[2022-01-29] VITALS (97 sets, daily range): BP systolic 81–137; BP diastolic 21–90
[2022-01-29] MEDS: INSULIN LISPRO 100 UNITS/ML SUBCUT SCH ×4 (00:26→17:42)
[2022-01-29] MEDS: BLOOD SUGAR DIAGNOSTIC STRIP TEST SCH ×4 (00:27→17:27)
[2022-01-29] MEDS: METOCLOPRAMIDE HCL 10MG/2ML VIAL IV SCH ×4 (00:27→17:39)
[2022-01-29] MEDS: IPRATROPIUM/ALBUTEROL 0.5-3(2.5)MG/3ML NEB HHN SCH ×4 (01:59→20:16)
[2022-01-29] MEDS: LACTULOSE 20G/30ML UDC PO SCH ×3 (05:49→21:57)
[2022-01-29] MEDS: PHENYLEPHRINE 100 MG in DEXT 5% WATER 240 ML IV PRN (07:00)
[2022-01-29] MEDS: FAMOTIDINE 20MG TABLET PO SCH (08:58)
[2022-01-29] MEDS: CARVEDILOL 3.125 MG TABLET PO SCH ×2 (09:01→21:57)
[2022-01-29] MEDS: MICONAZOLE NITRATE 2% OINT 71GM TOP SCH ×2 (09:02→21:57)
[2022-01-29 09:34] LABS: BG BASE EXCESS -1.8 mmol/L (-2.0-2.0); BG CARBOXYHEMOGLOBIN 0.8 % (0.5-1.5); BG DEOXYHEMOGLOBIN 3.5 % (0.0-5.0); BG FRACTION INSPIRED OXYGEN 32; BG HCO3 ACT 22.7 mmol/L (22.0-26.0); BG METHEMOGLOBIN 0.2 % (0.0-1.5); BG OXYGEN SATURATION 96.5 % (92.0-98.5); BG OXYHEMOGLOBIN 95.5 % (94.0-97.0); BG PCO2 37.9 mmHg (35.0-45.0); BG PH 7.395 (7.350-7.450); BG PO2 90.2 mmHg (75.0-100.0); BG SAMPLE SITE RIGHT RADIAL; BG TOTAL HEMOGLOBIN 15.1 g/dL (12.0-18.0); BG VENT MODE NASAL CANNULA
[2022-01-29] MEDS: DEXT 5%/0.9% NACL 1,000 ML IV SCH (11:35)
[2022-01-29] MEDS: ACETAMINOPHEN 325MG TABLET PO PRN (13:52)
[2022-01-30] VITALS (59 sets, daily range): BP systolic 95–156; BP diastolic 32–122
[2022-01-30] MEDS: METOCLOPRAMIDE HCL 10MG/2ML VIAL IV SCH ×5 (00:44→23:04)
[2022-01-30] MEDS: BLOOD SUGAR DIAGNOSTIC STRIP TEST SCH ×5 (00:50→23:05)
[2022-01-30] MEDS: INSULIN LISPRO 100 UNITS/ML SUBCUT SCH ×5 (00:50→23:05)
[2022-01-30] MEDS: IPRATROPIUM/ALBUTEROL 0.5-3(2.5)MG/3ML NEB HHN SCH ×4 (02:11→20:25)
[2022-01-30] MEDS: DEXT 5%/0.9% NACL 1,000 ML IV SCH (06:05)
[2022-01-30] MEDS: LACTULOSE 20G/30ML UDC PO SCH ×3 (06:10→22:00)
[2022-01-30] MEDS: CARVEDILOL 3.125 MG TABLET PO SCH ×3 (09:00→22:06)
[2022-01-30] MEDS: FAMOTIDINE 20MG TABLET PO SCH (09:00)
[2022-01-30] MEDS: MICONAZOLE NITRATE 2% OINT 71GM TOP SCH ×2 (09:00→22:00)
[2022-01-30 11:09] LABS: BG BASE EXCESS -2.8 mmol/L (-2.0-2.0); BG CARBOXYHEMOGLOBIN 0.8 % (0.5-1.5); BG DEOXYHEMOGLOBIN 3.3 % (0.0-5.0); BG FRACTION INSPIRED OXYGEN 28; BG HCO3 ACT 21.1 mmol/L (22.0-26.0); BG METHEMOGLOBIN 0.3 % (0.0-1.5); BG OXYGEN SATURATION 96.7 % (92.0-98.5); BG OXYHEMOGLOBIN 95.6 % (94.0-97.0); BG PCO2 34.4 mmHg (35.0-45.0); BG PH 7.406 (7.350-7.450); BG PO2 89.6 mmHg (75.0-100.0); BG SAMPLE SITE RIGHT RADIAL; BG TOTAL HEMOGLOBIN 14.3 g/dL (12.0-18.0); BG VENT MODE NASAL CANNULA
[2022-01-30 12:27] LABS: BASOPHILS % 0.3 % (0.0-2.0); EOSINOPHILS % 0.4 % (0.0-5.0); HEMATOCRIT. 42.8 % (42.0-52.0); HEMOGLOBIN. 13.8 g/dL (14.0-18.0); LYMPHOCYTES % 18.3 % (20.0-50.0); MEAN CORPUSCULAR HEMOGLOBIN 33.1 pg (28.0-32.0); MEAN CORPUSCULAR VOLUME 102.8 fL (80.0-94.0); MEAN PLATELET VOLUME 12.8 fl (7.4-10.4); RED BLOOD CELL COUNT 4.17 mill/uL (4.7-6.1)
[2022-01-30 12:29] LABS: PLATELET 53 x1000/uL (130-400)
[2022-01-30] MEDS: PHENYLEPHRINE 100 MG in DEXT 5% WATER 240 ML IV PRN (22:07)
[2022-01-31] VITALS (92 sets, daily range): BP systolic 84–148; BP diastolic 28–106
[2022-01-31] MEDS: IPRATROPIUM/ALBUTEROL 0.5-3(2.5)MG/3ML NEB HHN SCH ×4 (02:32→20:40)
[2022-01-31 06:00] LABS: BASOPHILS % 0.3 % (0.0-2.0); EOSINOPHILS % 0.4 % (0.0-5.0); HEMATOCRIT. 38.1 % (42.0-52.0); HEMOGLOBIN. 12.5 g/dL (14.0-18.0); LYMPHOCYTES % 19.1 % (20.0-50.0); MEAN CORPUSCULAR VOLUME 100.4 fL (80.0-94.0); MONOCYTES % 8.7 % (2.0-8.0); NEUTROPHILS % 71.5 % (40.0-76.0); RED CELL DISTRIBUTION WIDTH 17.3 % (11.6-14.6)
[2022-01-31] MEDS: BLOOD SUGAR DIAGNOSTIC STRIP TEST SCH ×4 (06:00→23:35)
[2022-01-31] MEDS: METOCLOPRAMIDE HCL 10MG/2ML VIAL IV SCH ×4 (06:00→23:35)
[2022-01-31] MEDS: DEXT 5%/0.9% NACL 1,000 ML IV SCH (06:01)
[2022-01-31] MEDS: LACTULOSE 20G/30ML UDC PO SCH ×3 (06:24→22:48)
[2022-01-31] MEDS: INSULIN LISPRO 100 UNITS/ML SUBCUT SCH ×4 (06:25→23:35)
[2022-01-31 06:26] LABS: PLATELET 46 x1000/uL (130-400)
[2022-01-31] MEDS ORDERED: KCL 20MEQ/100ML PREMIX 100 ML IV NR (08:00)
[2022-01-31] MEDS: FAMOTIDINE 20MG TABLET PO SCH (08:07)
[2022-01-31] MEDS: MICONAZOLE NITRATE 2% OINT 71GM TOP SCH ×2 (08:07→22:49)
[2022-01-31] MEDS: CARVEDILOL 3.125 MG TABLET PO SCH ×2 (08:07→21:00)
[2022-02-01] VITALS (45 sets, daily range): BP systolic 84–134; BP diastolic 25–85
[2022-02-01] MEDS: IPRATROPIUM/ALBUTEROL 0.5-3(2.5)MG/3ML NEB HHN SCH ×4 (01:35→20:36)
[2022-02-01 05:29] LABS: BASOPHILS % 0.3 % (0.0-2.0); EOSINOPHILS % 0.4 % (0.0-5.0); HEMATOCRIT. 42.6 % (42.0-52.0); HEMOGLOBIN. 13.8 g/dL (14.0-18.0); LYMPHOCYTES % 20.3 % (20.0-50.0); MEAN CORPUSCULAR HEMOGLOBIN 32.8 pg (28.0-32.0); MEAN CORPUSCULAR VOLUME 101.1 fL (80.0-94.0); MEAN PLATELET VOLUME 11.7 fl (7.4-10.4); MONOCYTES % 6.4 % (2.0-8.0); NEUTROPHILS % 72.6 % (40.0-76.0); RED BLOOD CELL COUNT 4.22 mill/uL (4.7-6.1)
[2022-02-01 05:34] LABS: PLATELET 41 x1000/uL (130-400)
[2022-02-01] MEDS: BLOOD SUGAR DIAGNOSTIC STRIP TEST SCH ×3 (05:41→18:20)
[2022-02-01] MEDS: LACTULOSE 20G/30ML UDC PO SCH ×3 (05:41→21:45)
[2022-02-01] MEDS: METOCLOPRAMIDE HCL 10MG/2ML VIAL IV SCH ×3 (05:41→18:08)
[2022-02-01] MEDS: INSULIN LISPRO 100 UNITS/ML SUBCUT SCH ×3 (05:41→18:10)
[2022-02-01] MEDS ORDERED: METOPROLOL TARTRATE 25MG TABLET PO SCH (06:00)
[2022-02-01] MEDS: DILTIAZEM HCL 5MG/ML 10ML VIAL IV PRN (06:23)
[2022-02-01] MEDS: MICONAZOLE NITRATE 2% OINT 71GM TOP SCH (08:21)
[2022-02-01] MEDS: FAMOTIDINE 20MG TABLET PO SCH (08:21)
[2022-02-01] MEDS: ACETAMINOPHEN 325MG TABLET PO PRN ×2 (08:21→21:45)
[2022-02-01] MEDS: VANCOMYCIN 750 MG in DEXT 5% WATER 250 ML IV SCH (13:25)
[2022-02-02] VITALS (102 sets, daily range): BP systolic 53–151; BP diastolic 17–101
[2022-02-02 00:43] LABS: BG BASE EXCESS -2.9 mmol/L (-2.0-2.0); BG DEOXYHEMOGLOBIN 5.5 % (0.0-5.0); BG FRACTION INSPIRED OXYGEN 28; BG HCO3 ACT 19.2 mmol/L (22.0-26.0); BG METHEMOGLOBIN 0.3 % (0.0-1.5); BG OXYGEN SATURATION 94.4 % (92.0-98.5); BG OXYHEMOGLOBIN 93.2 % (94.0-97.0); BG PCO2 26.7 mmHg (35.0-45.0); BG PH 7.474 (7.350-7.450); BG PO2 68.2 mmHg (75.0-100.0); BG SAMPLE SITE LEFT RADIAL; BG TOTAL HEMOGLOBIN 13.8 g/dL (12.0-18.0); BG VENT MODE NASAL CANNULA
[2022-02-02] MEDS: PHENYLEPHRINE 100 MG in DEXT 5% WATER 240 ML IV PRN ×3 (01:16→18:44)
[2022-02-02] MEDS: INSULIN LISPRO 100 UNITS/ML SUBCUT SCH ×5 (01:43→23:44)
[2022-02-02] MEDS: METOCLOPRAMIDE HCL 10MG/2ML VIAL IV SCH ×5 (01:43→23:45)
[2022-02-02] MEDS: ACETAMINOPHEN 650MG/20.3ML UDC PO PRN ×2 (02:09→10:15)
[2022-02-02] MEDS: IPRATROPIUM/ALBUTEROL 0.5-3(2.5)MG/3ML NEB HHN SCH ×2 (02:16→08:25)
[2022-02-02] MEDS: BLOOD SUGAR DIAGNOSTIC STRIP TEST SCH ×5 (05:17→23:44)
[2022-02-02] MEDS: LACTULOSE 20G/30ML UDC PO SCH ×3 (05:31→21:01)
[2022-02-02] MEDS: MICONAZOLE NITRATE 2% OINT 71GM TOP SCH ×2 (08:08→22:49)
[2022-02-02] MEDS ORDERED: VECURONIUM BROMIDE 10 MG/VIAL IV ONE (08:19)
[2022-02-02] MEDS ORDERED: ETOMIDATE 2MG/ML 10ML VIAL IV ONE (08:19)
[2022-02-02 08:25] LABS: BG BASE EXCESS -1.8 mmol/L (-2.0-2.0); BG CARBOXYHEMOGLOBIN 0.4 % (0.5-1.5); BG DEOXYHEMOGLOBIN 5.3 % (0.0-5.0); BG FRACTION INSPIRED OXYGEN 32; BG HCO3 ACT 21.2 mmol/L (22.0-26.0); BG METHEMOGLOBIN 0.3 % (0.0-1.5); BG OXYGEN SATURATION 94.7 % (92.0-98.5); BG PCO2 31.5 mmHg (35.0-45.0); BG PH 7.445 (7.350-7.450); BG PO2 73.3 mmHg (75.0-100.0); BG SAMPLE SITE RIGHT RADIAL; BG TOTAL HEMOGLOBIN 15.7 g/dL (12.0-18.0); BG VENT MODE NASAL CANNULA
[2022-02-02] MEDS: VASOPRESSIN 20 UNIT in SODIUM CHLORIDE 0.9% 99 ML IV PRN ×2 (08:36→18:06)
[2022-02-02 08:43] LABS: BASOPHILS % 0.3 % (0.0-2.0); HEMATOCRIT. 41.3 % (42.0-52.0); HEMOGLOBIN. 13.6 g/dL (14.0-18.0); LYMPHOCYTES % 21.3 % (20.0-50.0); MEAN CORPUSCULAR HEMOGLOBIN 32.9 pg (28.0-32.0); MEAN CORPUSCULAR VOLUME 99.9 fL (80.0-94.0); MEAN PLATELET VOLUME 12.7 fl (7.4-10.4); NEUTROPHILS % 73.4 % (40.0-76.0); RED BLOOD CELL COUNT 4.14 mill/uL (4.7-6.1); RED CELL DISTRIBUTION WIDTH 17.1 % (11.6-14.6)
[2022-02-02] MEDS: FAMOTIDINE 20MG TABLET PO SCH (08:43)
[2022-02-02 09:14] LABS: PLATELET 35 x1000/uL (130-400)
[2022-02-02] MEDS ORDERED: SODIUM BICARBONATE 8.4% 1 MEQ/ML 50ML SYR IV ONE (09:29)
[2022-02-02] MEDS ORDERED: EPINEPHRINE 0.1MG/ML (1:10,000) 10ML SYR ONE (09:29)
[2022-02-02] MEDS ORDERED: DEXTROSE 50% WATER 50ML SYRINGE IV ONE (09:29)
[2022-02-02] MEDS ORDERED: FENTANYL CITRATE/PF 1,000 MCG in SODIUM CHLORIDE 0.9% 80 ML IV PRN (09:45)
[2022-02-02] MEDS ORDERED: MIDAZOLAM HCL 100 MG in SODIUM CHLORIDE 0.9% 80 ML IV PRN (09:45)
[2022-02-02] MEDS ORDERED: FENTANYL 2500MCG/250ML PMX 250 ML IV PRN ×2 (10:00→14:15)
[2022-02-02] MEDS ORDERED: IPRATROPIUM BROMIDE (0.02%) 0.5MG/2.5ML NEB HHN SCH (10:00)
[2022-02-02] MEDS ORDERED: MIDAZOLAM 100MG/100ML PREMIX IV PRN (10:00)
[2022-02-02] MEDS ORDERED: SODIUM CHLORIDE 0.9% 500 ML IV ONE ×2 (10:15→17:30)
[2022-02-02] MEDS: MEROPENEM 1,000 MG in SODIUM CHLORIDE 0.9% 100 ML IV SCH ×2 (10:15→20:59)
[2022-02-02] MEDS: NOREPINEPHRINE 32 MG in DEXT 5% WATER 218 ML IV PRN ×2 (10:16→20:01)
[2022-02-02 10:31] LABS: INR 1.9; PROTHROMBIN TIME 19.8 sec (9.6-11.0)
[2022-02-02 10:55] LABS: BG BASE EXCESS -6.8 mmol/L (-2.0-2.0); BG CARBOXYHEMOGLOBIN 0.5 % (0.5-1.5); BG FRACTION INSPIRED OXYGEN 50; BG HCO3 ACT 19.2 mmol/L (22.0-26.0); BG METHEMOGLOBIN 0.4 % (0.0-1.5); BG OXYGEN SATURATION 93.9 % (92.0-98.5); BG OXYHEMOGLOBIN 93.1 % (94.0-97.0); BG PCO2 40.3 mmHg (35.0-45.0); BG PH 7.296 (7.350-7.450); BG PO2 79.7 mmHg (75.0-100.0); BG SAMPLE SITE RIGHT BRACHIAL; BG TOTAL HEMOGLOBIN 16.2 g/dL (12.0-18.0); BG VENT MODE VENT - AC
[2022-02-02] MEDS: DILTIAZEM HCL 5MG/ML 10ML VIAL IV PRN (11:21)
[2022-02-02] MEDS: VANCOMYCIN 750 MG in DEXT 5% WATER 250 ML IV SCH (13:19)
[2022-02-02] MEDS ORDERED: DIGOXIN 500MCG/2ML AMP IV NR (17:39)
[2022-02-02 17:42] LABS: BG BASE EXCESS -14.7 mmol/L (-2.0-2.0); BG CARBOXYHEMOGLOBIN 0.3 % (0.5-1.5); BG FRACTION INSPIRED OXYGEN 50; BG METHEMOGLOBIN 0.3 % (0.0-1.5); BG OXYHEMOGLOBIN 98.4 % (94.0-97.0); BG PCO2 22.8 mmHg (35.0-45.0); BG PH 7.262 (7.350-7.450); BG PO2 166.9 mmHg (75.0-100.0); BG SAMPLE SITE RIGHT BRACHIAL; BG TOTAL HEMOGLOBIN 16.4 g/dL (12.0-18.0); BG VENT MODE VENT - AC
[2022-02-02] MEDS ORDERED: SODIUM BICARBONATE 8.4% 1 MEQ/ML 50ML SYR IV NR (18:00)
[2022-02-02] MEDS ORDERED: SODIUM BICARBONATE 150 MEQ in DEXTROSE 5% WATER 1,000 ML IV SCH (18:00)
[2022-02-02] MEDS ORDERED: AMIODARONE HCL 900 MG in DEXT 5% WATER 482 ML IV PRN (19:00)
[2022-02-02] MEDS ORDERED: AMIODARONE HCL 100 MG in DEXT 5% WATER 100 ML IV NR (19:00)
[2022-02-03] MEDS ORDERED: DOPAMINE 800MG PREMIX (DOUBLE) 250 ML IV PRN
[2022-02-03 00:08] VITALS: BP 58/32
[2022-02-03 00:46] VITALS: BP 143/64
== END 2022-02-03 02:15 | DRG 720 ==
LOC: ER 15:44 → ENRESERV 17:45 → MICUSO 17:58 → MICUNO 01-14 15:58 → MICUSO 01-16 18:00 → MICUNO 01-18 18:00 → 5EST 01-19 14:41 → CVICU 01-25 07:06 → 5EST 02-01 20:06 → MICUSO 02-02 01:02 → 5EST 02-02 01:05 → MICUSO 02-02 01:06
PROVIDERS: ADMIT Internal Medicine; ATTEND Internal Medicine
PROC: 5A1955Z Respiratory Ventilation, Greater than 96 Consecutive Hours (ICD-10-PCS; principal; 2022-01-12)
PROC: 06HY33Z Insertion of Infusion Device into Lower Vein, Percutaneous Approach (ICD-10-PCS; 2022-01-12)
PROC: B54CZZA Ultrasonography of Left Lower Extremity Veins, Guidance (ICD-10-PCS; 2022-01-12)
PROC: 0BH17EZ Insertion of Endotracheal Airway into Trachea, Via Natural or Artificial Opening (ICD-10-PCS; 2022-01-12)
PROC: 02HV33Z Insertion of Infusion Device into Superior Vena Cava, Percutaneous Approach (ICD-10-PCS; 2022-01-15)
PROC: B548ZZA Ultrasonography of Superior Vena Cava, Guidance (ICD-10-PCS; 2022-01-15)
PROC: 5A1D70Z Performance of Urinary Filtration, Intermittent, Less than 6 Hours Per Day (ICD-10-PCS; 2022-01-17)
PROC: 5A12012 Performance of Cardiac Output, Single, Manual (ICD-10-PCS; 2022-01-25)
PROC: 05HY33Z Insertion of Infusion Device into Upper Vein, Percutaneous Approach (ICD-10-PCS; 2022-01-25)
PROC: B54MZZA Ultrasonography of Right Upper Extremity Veins, Guidance (ICD-10-PCS; 2022-01-25)
PROC: 0BH17EZ Insertion of Endotracheal Airway into Trachea, Via Natural or Artificial Opening (ICD-10-PCS; 2022-01-25)
PROC: 5A1945Z Respiratory Ventilation, 24-96 Consecutive Hours (ICD-10-PCS; 2022-01-25)
PROC: 5A12012 Performance of Cardiac Output, Single, Manual (ICD-10-PCS; 2022-02-02)
PROC: 0BH17EZ Insertion of Endotracheal Airway into Trachea, Via Natural or Artificial Opening (ICD-10-PCS; 2022-02-02)
PROC: 5A1935Z Respiratory Ventilation, Less than 24 Consecutive Hours (ICD-10-PCS; 2022-02-02)
DX: A41.9 Sepsis, unspecified organism (principal); J96.01 Acute respiratory failure with hypoxia; N17.0 Acute kidney failure with tubular necrosis; J69.0 Pneumonitis due to inhalation of food and vomit; E11.00 Type 2 diabetes mellitus with hyperosmolarity without nonketotic hyperglycemic-hyperosmolar coma (NKHHC); R65.21 Severe sepsis with septic shock; R57.0 Cardiogenic shock; G92.8 Other toxic encephalopathy; D68.69 Other thrombophilia; I42.9 Cardiomyopathy, unspecified; I50.23 Acute on chronic systolic (congestive) heart failure; I46.9 Cardiac arrest, cause unspecified; D68.9 Coagulation defect, unspecified; E43 Unspecified severe protein-calorie malnutrition; D69.6 Thrombocytopenia, unspecified; Z66 Do not resuscitate; E87.6 Hypokalemia; N39.0 Urinary tract infection, site not specified; I11.0 Hypertensive heart disease with heart failure; D64.9 Anemia, unspecified; I48.92 Unspecified atrial flutter; I48.91 Unspecified atrial fibrillation; K42.9 Umbilical hernia without obstruction or gangrene; L89.156 Pressure-induced deep tissue damage of sacral region; K74.60 Unspecified cirrhosis of liver; K59.00 Constipation, unspecified; S80.822A Blister (nonthermal), left lower leg, initial encounter; S80.821A Blister (nonthermal), right lower leg, initial encounter; X58.XXXA Exposure to other specified factors, initial encounter; E11.9 Type 2 diabetes mellitus without complications; Y93.89 Activity, other specified; Y92.89 Other specified places as the place of occurrence of the external cause; Y99.8 Other external cause status; Z82.49 Family history of ischemic heart disease and other diseases of the circulatory system; Z59.00 Homelessness unspecified; Z68.29 Body mass index [BMI] 29.0-29.9, adult
CPT/HCPCS: 31500; 36415; 36573; 36600; 71045; 74018; 74176; 76700; 76770; 80048; 80053; 80061; 80076; 80202; 80305; 80320; 81003; 82010; 82040; 82140; 82270; 82375; 82550; 82553; 82607; 82746; 82805; 82962; 83036; 83540; 83550; 83605; 83735; 83880; 83930; 84100; 84134; 84145; 84439; 84443; 84478; 84484; 85025; 86850; 86900; 87070; 87077; 87106; 87186; 92610; 92950; 93005; 93306; 93970; 93971; 94002; 94003; 94640; 97162; 97166; 97530; 99291; C1725; C9113; J0282; J1160; J1250; J1265; J1650; J1815; J1940; J2185; J2250; J2370; J2405; J2543; J2704; J2765; J3010; J3370; J3475; J3480; J3490; J7030; J7042; J7050; J7060; J7070; G0480